=== PATIENT | female | born 1985 | race Caucasian/White ===

== ENCOUNTER 2020-12-08 10:57 | Emergency (ER) | payer OTHER ==
[~2020-12-08] VITALS: Ht 160 cm; Wt 63.5 kg
[~2020-12-08 10:57] MED LIST: [UNRECOGNIZED DRUG - CODE] PO
[2020-12-08 11:02] VITALS: BP 129/77
--- NOTE | 2020-12-08 11:10 | NUR ---
PT AMBULATED TO BED 4.
--- NOTE | 2020-12-08 11:15 | NUR ---
DR NEWTON AT BEDSIDE EXAMINING PATIENT
--- NOTE | 2020-12-08 11:30 | NUR ---
35 YEAR OLD FEMALE COMPLAINS OF BUTTOCKS PAIN X 3 WEEKS. PT STATES THAT SHE HAD SURGERY TO LIFT BUTTOCKS LAST YEAR AND ONLY RECENTLY STARTED TO FEEL PAIN WHEN SHE SITS ON IT, STATES THAT SUDDENLY IT FEELS HARDENED AND DOES NOT FEEL RIGHT. PT AOX4, BREATHING EVEN AND UNLABORED, SKIN WARM AND DRY. BED IN LOWEST POSITION, LOCKED, BED RAIL UPX1. PMH - DENIES ALLERGIES - NKA
[2020-12-08] MEDS ORDERED: CEPH500C16 PO (12:57)
[2020-12-08] MEDS ORDERED: SULF-59 PO (12:57)
--- NOTE | 2020-12-08 13:00 | NUR ---
Patient discharged with v/s stable. Written and verbal after care instructions about cellulitis, seroma given and explained. Patient alert, oriented and verbalized understanding of instructions. Ambulatory with steady gait. All questions addressed prior to discharge. ID band removed. Patient advised to follow up with PMD. Rx of keflex, bactrim given. Patient educated on indication of medication including possible reaction and side effects. Opportunity to ask questions provided and answered.
[2020-12-08 13:05] VITALS: BP 129/77
== END 2020-12-08 13:00 | disposition home or self-care (01) ==
LOC: MED 10:57
DX: D17.79 Benign lipomatous neoplasm of other sites (principal)
CPT/HCPCS: 72192; 81025; 99284